=== PATIENT | female | born 1935 | race Hispanic/Latino ===

== ENCOUNTER → 2019-07-05 | Outpatient (CLI) | payer OTHER ==
[~2019-07-05] MED LIST: ASPI-1146 PO; ATEN50TA PO; FOLI-74 PO; HYDR25TA PO; LISI40TA4 PO; PANT40TA25 PO
== END | disposition home or self-care (01) ==
LOC: RAH 09:08
PROVIDERS: ATTEND Internal Medicine Gastroenterology
DX: N28.1 Cyst of kidney, acquired (principal); I70.0 Atherosclerosis of aorta; Z90.49 Acquired absence of other specified parts of digestive tract
CPT/HCPCS: 76700

== ENCOUNTER → 2019-09-21 | Outpatient (CLI) | payer OTHER | END | disposition home or self-care (01) | LOC: RAH 08:28 | PROVIDERS: ATTEND Internal Medicine Gastroenterology | DX: K21.9 Gastro-esophageal reflux disease without esophagitis (principal); K44.9 Diaphragmatic hernia without obstruction or gangrene | CPT/HCPCS: 74240 ==

== ENCOUNTER 2020-07-23 21:19 | Observation (INO) | payer OTHER ==
[~2020-07-23] VITALS: Ht 157.5 cm; Wt 62.7 kg
[~2020-07-23 21:19] MED LIST changes: -PANT40TA25 PO; +PANT40TA54 PO
[2020-07-23 21:47] LABS: BASOPHILS % (AUTO) 0.1 % (0.0-5.0); HEMATOCRIT 31.7 % (36-48); LYMPHOCYTES % (AUTO) 9.1 % (21.0-51.0); MEAN CORPUSCULAR HGB CONC 33.8 g/dL (32.0-36.0); MEAN CORPUSCULAR VOLUME 97.8 fL (79-99); MONOCYTES % (AUTO) 4.8 % (3.0-13.0); NEUTROPHILS % (AUTO) 85.3 % (40.0-77.0); PLATELET COUNT (AUTO) 157 K/uL (130-400); RED BLOOD CELL COUNT(AUTO) 3.24 MIL/uL (4.00-5.50); RED CELL DISTRIBUTION WIDTH 13.6 % (11.0-15.5); WHITE BLOOD COUNT (AUTO) 10.3 K/uL (4.8-10.8)
[2020-07-23] MEDS ORDERED: DILTIAZEM HCL 5 MG/ML 10 ML VIAL IV ONE (22:02)
[2020-07-23] MEDS ORDERED: DILTIAZEM HCL 125 MG/25 ML VIAL IV ONE (22:03)
[2020-07-23 22:07] LABS: CREATININE 1.9 mg/dL (0.5-1.5)
[2020-07-23 22:08] LABS: INR 0.93 (0.85-1.15); PARTIAL THROMBOPLASTIN TIME 20.1 SEC (26.3-35.5); PROTHROMBIN TIME 10.1 SEC (9.6-11.6)
[2020-07-23] MEDS ORDERED: SODIUM CHLORIDE 0.9% 100 ML IV ONE (22:10)
[2020-07-23 22:11] LABS: ALBUMIN 3.5 g/dL (3.5-5.0); BILIRUBIN,TOTAL 0.3 mg/dL (0.2-1.0); MAGNESIUM 1.7 mg/dL (1.80-2.40); TOTAL PROTEIN, SERUM 6.9 g/dL (6.0-8.3)
[2020-07-23 22:15] LABS: B-TYPE NATRIURETIC PEPTIDE 96 pg/mL (0-100)
[2020-07-23] MEDS ORDERED: MAGNESIUM OXIDE 400 MG TABLET PO ONE (22:31)
[2020-07-23 23:15] LABS: APPEARANCE,URINE Clear (CLEAR); BILIRUBIN,URINE Negative (NEGATIVE); COLOR,URINE Yellow (YELLOW); GLUCOSE, URINE (UA) Negative (NEGATIVE); KETONES,URINE Negative (NEGATIVE); LEUKOCYTE ESTERASE ,URINE Small (NEGATIVE); NITRATE,URINE Negative (NEGATIVE); OCCULT BLOOD,URINE Negative (NEGATIVE); PROTEIN,URINE Negative (NEGATIVE); UROBILINOGEN,URINE 0.2 mg/dL (0.2-1.0)
[2020-07-23 23:29] LABS: BACTERIA,URINE Few /HPF (None Seen); SQUAMOUS EPITHELIAL CELL,UR 0-2 /HPF (0-2)
[2020-07-24] MEDS ORDERED: ENOXAPARIN SODIUM 60 MG/0.6 ML SQ ONE (00:07)
[2020-07-24 03:15] VITALS: BP 118/78
[2020-07-24 06:26] LABS: HEMATOCRIT 29.9 % (36-48); MEAN CORPUSCULAR HEMOGLOBIN 32.8 pg (27.0-33.0); MEAN CORPUSCULAR HGB CONC 33.4 g/dL (32.0-36.0); RED BLOOD CELL COUNT(AUTO) 3.05 MIL/uL (4.00-5.50); RED CELL DISTRIBUTION WIDTH 13.8 % (11.0-15.5); WHITE BLOOD COUNT (AUTO) 9.8 K/uL (4.8-10.8)
[2020-07-24 06:46] LABS: CREATININE 1.4 mg/dL (0.5-1.5); POTASSIUM 4.9 mmol/L (3.5-5.1); THYROID STIMULATING HORMONE 0.91 uIU/mL (0.36-3.74)
--- NOTE | 2020-07-24 07:30 | NUR ---
ASSESSMENT ACCEPTED CARE OF PT AT 0700. ON ASSESSMENT HR 57 AND IN SINUS BRADYCARDIA. CARDIZEM WAS TURNED OFF IMMEDIATELY. DR. MACHADO ROUNDED ON PT. PT IS CALM IN BED AND USES THE CALLBELL APPROPRIATELY.
[2020-07-24 08:00] VITALS: BP 122/59
[2020-07-24] MEDS: METOPROLOL TARTRATE 25 MG TAB PO SCH ×2 (09:00→21:18)
[2020-07-24 11:00] VITALS: BP_SYST 136; BP_SYST 145; BP_DIAS 63; BP_DIAS 73
--- NOTE | 2020-07-24 12:10 | NUR ---
DANIELLE MIGUEL SPOKE WITH DAUGHTER (LEONORA CLATYON [phone]) OF PATIENT. PER DAUGHTER, PATIENT LIVES AT HOME WITH FAMILY. PER DAUGHTER, PATIENT IS INDEPENDENT AND ABLE TO PERFORM ADLs. NO SERVICES OR DME'S. FEELS SAFE TO RETURN HOME. CM TO FOLLOW UP. Addendum: 07/24/20 at 1212 by HARRY ZAPATA Amended: Links added.
--- NOTE | 2020-07-24 13:00 | NUR ---
PAGE FOR DR. MACHADO PT'S DAUGHTER HAS REQUESTED THAT A [employer] SET UP TECHNICIAN SEE PT. PAGED DR. MACHADO AT HIS OFFICE TO COMMUNICATE DAUGHTER'S CONCERNS.
[2020-07-24 15:00] VITALS: BP 149/68
[2020-07-24 20:29] VITALS: BP 151/70
[2020-07-24 23:17] VITALS: BP 132/73
[2020-07-25 03:27] VITALS: BP 122/65
[2020-07-25 07:00] VITALS: BP 132/64
[2020-07-25] MEDS ORDERED: OLME40TA18 PO (08:21)
[2020-07-25] MEDS ORDERED: AMLO5TAB9 PO (08:21)
[2020-07-25] MEDS ORDERED: PRED20TA3 PO (08:26)
[2020-07-25] MEDS ORDERED: MONT10TA26 PO (08:28)
[2020-07-25] MEDS ORDERED: ACET-66 PO (08:34)
[2020-07-25] MEDS: METOPROLOL TARTRATE 25 MG TAB PO SCH (08:43)
[2020-07-25] MEDS ORDERED: ACETAMINOPHEN EXTRA STRENGTH 500 MG TABLET PO PRN (08:45)
[2020-07-25 11:00] VITALS: BP 121/68
--- NOTE | 2020-07-25 15:30 | NUR ---
DC PT AWAKE, ALERT, AND ORIENTED. DENIES CHEST PAIN, NO SOB OR LABORED RESPIRATIONS. DC HOME INSTRUCTIONS GIVEN TO PT, ACKNOWLEDGED ALL INFORMATION, ALL QUESTIONS ANSWERED. RX GIVEN TO PT. CALL PREVIOUSLY PLACED TO DAUGHTER TO MAKE AWARE OF DISCHARGE, AWARE OF NEW PRESCRIPTION. PT MADE AWARE TO DIAL 911 OR RETURN TO ER IN CASE OF EMERGENCY. AWAITING FOR TRANSPORTATION
[2020-07-25] MEDS ORDERED: APIXABAN 2.5 MG TABLET PO SCH (21:00)
== END 2020-07-25 16:16 | disposition home or self-care (01) ==
LOC: EDH 21:19 → EDHIP 22:45 → 4BH 07-24 03:32
PROVIDERS: ADMIT Internal Medicine; ATTEND Internal Medicine
DX: I48.91 Unspecified atrial fibrillation (principal); I12.9 Hypertensive chronic kidney disease with stage 1 through stage 4 chronic kidney disease, or unspecified chronic kidney disease; N18.30 Chronic kidney disease, stage 3 unspecified; E83.42 Hypomagnesemia; M19.90 Unspecified osteoarthritis, unspecified site; Z90.49 Acquired absence of other specified parts of digestive tract; Z90.2 Acquired absence of lung [part of]; Z86.11 Personal history of tuberculosis; Z79.899 Other long term (current) drug therapy; Z88.1 Allergy status to other antibiotic agents
CPT/HCPCS: 36415 ×2; 71045; 80048; 80053; 81001; 82550; 82948 ×6; 83735; 83880; 84443; 84484; 85025; 85027; 85610; 85730; 87088; 93005 ×2; 93306; 93356; 99291; G0378 ×3; J1650; J3490 ×2

== ENCOUNTER 2022-06-26 09:05 | Emergency (ER) | payer OTHER ==
[~2022-06-26] VITALS: Ht 157.5 cm; Wt 58.5 kg
[~2022-06-26 09:05] MED LIST changes: +ACET-66 PO; +AMLO-257 PO; -ASPI-1146 PO; -LISI40TA4 PO; +MONT-39 PO; +OLME40TA18 PO; -PANT40TA54 PO; +PRED20TA3 PO
[2022-06-26 09:42] LABS: BASOPHILS % (AUTO) 0.8 % (0.0-5.0); EOSINOPHILS % (AUTO) 3.6 % (0.0-8.0); HEMATOCRIT 30.7 % (36-48); LYMPHOCYTES % (AUTO) 51.1 % (21.0-51.0); MEAN CORPUSCULAR HEMOGLOBIN 32.3 pg (27.0-33.0); MEAN CORPUSCULAR HGB CONC 32.6 g/dL (32.0-36.0); MONOCYTES % (AUTO) 6.8 % (3.0-13.0); NEUTROPHILS % (AUTO) 37.5 % (40.0-77.0); PLATELET COUNT (AUTO) 180 K/uL (130-400); RED CELL DISTRIBUTION WIDTH 13.2 % (11.0-15.5); WHITE BLOOD COUNT (AUTO) 6.2 K/uL (4.8-10.8)
[2022-06-26 10:02] LABS: CREATININE 1.6 mg/dL (0.5-1.5); POTASSIUM 5.5 mmol/L (3.5-5.1)
[2022-06-26 10:04] LABS: ALBUMIN 3.8 g/dL (3.5-5.0); TOTAL PROTEIN, SERUM 7.5 g/dL (6.0-8.3)
[2022-06-26] MEDS ORDERED: 0.9%NACL 1000ML 1,000 ML IV ONE (11:00)
[2022-06-26 11:45] LABS: APPEARANCE,URINE CLEAR (CLEAR); BILIRUBIN,URINE NEGATIVE (NEGATIVE); COLOR,URINE YELLOW (YELLOW); GLUCOSE, URINE (UA) NEGATIVE (NEGATIVE); KETONES,URINE NEGATIVE (NEGATIVE); LEUKOCYTE ESTERASE ,URINE SMALL (NEGATIVE); NITRATE,URINE NEGATIVE (NEGATIVE); OCCULT BLOOD,URINE NEGATIVE (NEGATIVE); PH,URINE 5.5 (5.0-8.0); PROTEIN,URINE NEGATIVE (NEGATIVE); UROBILINOGEN,URINE 0.2 mg/dL (0.2-1.0)
[2022-06-26 12:14] LABS: BACTERIA,URINE Few /HPF (None Seen); RBC,URINE None Seen /HPF (0-1)
[2022-06-26 12:15] LABS: SQUAMOUS EPITHELIAL CELL,UR 0-2 /HPF (0-2)
[2022-06-26 13:51] VITALS: BP 127/51
== END 2022-06-26 14:09 | disposition home or self-care (01) ==
LOC: EDH 09:05
DX: E87.5 Hyperkalemia (principal); N28.9 Disorder of kidney and ureter, unspecified; E86.0 Dehydration; R19.7 Diarrhea, unspecified; D64.9 Anemia, unspecified; F41.9 Anxiety disorder, unspecified; E78.00 Pure hypercholesterolemia, unspecified; I10 Essential (primary) hypertension; Z88.1 Allergy status to other antibiotic agents; Z88.8 Allergy status to other drugs, medicaments and biological substances; Z79.899 Other long term (current) drug therapy; Z98.890 Other specified postprocedural states; Z90.49 Acquired absence of other specified parts of digestive tract
CPT/HCPCS: 99284; 96360; 84484; 80053; 85025; 81001; 36415; 93005; J7030

== ENCOUNTER → 2022-12-07 | Outpatient (CLI) | payer OTHER | END | disposition home or self-care (01) | LOC: LAB 11:10 | PROVIDERS: ATTEND Internal Medicine Cardiovascular Disease | DX: I10 Essential (primary) hypertension (principal) | CPT/HCPCS: 36415; 83880 ==

== ENCOUNTER 2023-02-23 12:03 | Emergency (ER) | payer OTHER ==
[~2023-02-23] VITALS: Ht 162.6 cm; Wt 55.3 kg
[2023-02-23 12:51] LABS: BASOPHILS % (AUTO) 0.7 % (0.0-5.0); EOSINOPHILS % (AUTO) 1.3 % (0.0-8.0); HEMATOCRIT 34.9 % (36-48); LYMPHOCYTES % (AUTO) 33.4 % (21.0-51.0); MEAN CORPUSCULAR VOLUME 94.1 fL (79-99); MONOCYTES % (AUTO) 9.7 % (3.0-13.0); NEUTROPHILS % (AUTO) 54.8 % (40.0-77.0); PLATELET COUNT (AUTO) 232 K/uL (130-400); RED BLOOD CELL COUNT(AUTO) 3.71 MIL/uL (4.00-5.50); RED CELL DISTRIBUTION WIDTH 13.6 % (11.0-15.5); WHITE BLOOD COUNT (AUTO) 6.9 K/uL (4.8-10.8)
[2023-02-23 12:57] VITALS: BP 160/73
[2023-02-23 13:02] LABS: CREATININE 1.6 mg/dL (0.5-1.5); POTASSIUM 3.6 mmol/L (3.5-5.1)
[2023-02-23 13:06] LABS: ALBUMIN 3.9 g/dL (3.5-5.0)
[2023-02-23] MEDS ORDERED: FURO20TA4 PO (13:07)
[2023-02-23] MEDS ORDERED: APIX2.5T PO (13:07)
== END 2023-02-23 14:20 | disposition home or self-care (01) ==
LOC: EDH 12:03
DX: R00.2 Palpitations (principal); E86.0 Dehydration; E78.00 Pure hypercholesterolemia, unspecified; I12.9 Hypertensive chronic kidney disease with stage 1 through stage 4 chronic kidney disease, or unspecified chronic kidney disease; N18.9 Chronic kidney disease, unspecified; Z79.899 Other long term (current) drug therapy; Z90.49 Acquired absence of other specified parts of digestive tract; Z88.1 Allergy status to other antibiotic agents; Z88.8 Allergy status to other drugs, medicaments and biological substances
CPT/HCPCS: 36415; 80053; 84484; 85025; 93005

== ENCOUNTER → 2023-10-14 | Outpatient (CLI) | payer OTHER ==
[~2023-10-14] MED LIST changes: -AMLO-257 PO; +APIX2.5T PO; +FURO20TA4 PO; -MONT-39 PO; -PRED20TA3 PO
== END | disposition home or self-care (01) ==
LOC: WHH 10:02
PROVIDERS: ATTEND Nurse Practitioner Family
DX: L89.310 Pressure ulcer of right buttock, unstageable (principal); I48.91 Unspecified atrial fibrillation; I10 Essential (primary) hypertension; K21.9 Gastro-esophageal reflux disease without esophagitis; Z90.49 Acquired absence of other specified parts of digestive tract; Z90.710 Acquired absence of both cervix and uterus; Z90.721 Acquired absence of ovaries, unilateral; Z79.899 Other long term (current) drug therapy
CPT/HCPCS: 11042; A4450

== ENCOUNTER → 2023-10-21 | Outpatient (CLI) | payer OTHER ==
[~2023-10-21] MED LIST changes: +LIDOCAINE HCL 4% LTA SOL 4 ML VIAL TP ONE
== END | disposition home or self-care (01) ==
LOC: WHH 09:45
PROVIDERS: ATTEND Nurse Practitioner Family
DX: L89.310 Pressure ulcer of right buttock, unstageable (principal); I48.91 Unspecified atrial fibrillation; I10 Essential (primary) hypertension; K21.9 Gastro-esophageal reflux disease without esophagitis; Z90.49 Acquired absence of other specified parts of digestive tract; Z90.710 Acquired absence of both cervix and uterus; Z90.721 Acquired absence of ovaries, unilateral; Z79.899 Other long term (current) drug therapy
CPT/HCPCS: 11042; A4450

== ENCOUNTER → 2023-10-28 | Outpatient (CLI) | payer OTHER | END | disposition home or self-care (01) | LOC: WHH 09:51 | PROVIDERS: ATTEND Nurse Practitioner Family | DX: L89.313 Pressure ulcer of right buttock, stage 3 (principal); I48.91 Unspecified atrial fibrillation; I10 Essential (primary) hypertension; K21.9 Gastro-esophageal reflux disease without esophagitis; Z90.49 Acquired absence of other specified parts of digestive tract; Z90.710 Acquired absence of both cervix and uterus; Z90.721 Acquired absence of ovaries, unilateral; Z79.899 Other long term (current) drug therapy | CPT/HCPCS: 11042; A6212 ==

== ENCOUNTER → 2023-11-04 | Outpatient (CLI) | payer OTHER ==
[~2023-11-04] MED LIST changes: -LIDOCAINE HCL 4% LTA SOL 4 ML VIAL TP ONE
== END | disposition home or self-care (01) ==
LOC: WHH 09:45
PROVIDERS: ATTEND Nurse Practitioner Family
DX: L89.313 Pressure ulcer of right buttock, stage 3 (principal); I48.21 Permanent atrial fibrillation; I10 Essential (primary) hypertension; K21.9 Gastro-esophageal reflux disease without esophagitis; Z90.49 Acquired absence of other specified parts of digestive tract; Z90.710 Acquired absence of both cervix and uterus; Z90.721 Acquired absence of ovaries, unilateral; Z79.899 Other long term (current) drug therapy
CPT/HCPCS: G0463; A6212

== ENCOUNTER → 2023-11-11 | Outpatient (CLI) | payer OTHER ==
[~2023-11-11] MED LIST changes: +LIDOCAINE HCL 4% LTA SOL 4 ML VIAL TP ONE
== END | disposition home or self-care (01) ==
LOC: WHH 09:53
PROVIDERS: ATTEND Nurse Practitioner Family
DX: L89.313 Pressure ulcer of right buttock, stage 3 (principal); I10 Essential (primary) hypertension; I48.21 Permanent atrial fibrillation; K21.9 Gastro-esophageal reflux disease without esophagitis; Z90.49 Acquired absence of other specified parts of digestive tract; Z90.710 Acquired absence of both cervix and uterus; Z90.721 Acquired absence of ovaries, unilateral; Z79.899 Other long term (current) drug therapy
CPT/HCPCS: G0463

== ENCOUNTER → 2023-11-18 | Outpatient (CLI) | payer OTHER ==
[~2023-11-18] MED LIST changes: -LIDOCAINE HCL 4% LTA SOL 4 ML VIAL TP ONE
== END | disposition home or self-care (01) ==
LOC: WHH 09:40
PROVIDERS: ATTEND Nurse Practitioner Family
DX: L89.313 Pressure ulcer of right buttock, stage 3 (principal); I10 Essential (primary) hypertension; I48.21 Permanent atrial fibrillation; K21.9 Gastro-esophageal reflux disease without esophagitis; Z90.49 Acquired absence of other specified parts of digestive tract; Z90.710 Acquired absence of both cervix and uterus; Z90.721 Acquired absence of ovaries, unilateral; Z79.899 Other long term (current) drug therapy
CPT/HCPCS: G0463